=== PATIENT | female | born 1990 | race Caucasian/White ===

== ENCOUNTER 2018-09-14 06:31 | Inpatient (IN) | payer OTHER ==
[~2018-09-14] VITALS: Ht 160 cm; Wt 80.7 kg
[2018-09-14] VITALS (9 sets, daily range): BP systolic 101–140; BP diastolic 63–83
--- NOTE | 2018-09-14 06:25 | NUR ---
PT PRESENTS TO OB BY W/C FROM ED REGISTRATION WITH C/O PAINFUL CONTRACTIONS. STATES AWOKE AT 0200 WITH BACK PAIN. STATES STARTED FEELING CONTRACTIONS ABOUT EVERY 3-5 MIN. PT THEN CALLED OB AROUND 0500 AND WAS TOLD SHE COULD TAKE A WARM BATH AND TAKE TYLENOL HER PAIN WAS TOLERABLE AT THAT TIME AND CALL BACK IN 1 HOUR, OR SHE COULD JUST PRESENT TO OB TO BE EVALUATED. PT HAVING SEVERE PAIN ON ARRIVAL TO LABOR ROOM. PT ASSISTED TO BED AT THIS TIME.
--- NOTE | 2018-09-14 06:35 | NUR ---
SVE DONE AND PT 9CM/100% WITH BULGING BAG, VERTEX, 0 TO +[address] AGUILERA NOTIFIED.
--- NOTE | 2018-09-14 06:40 | NUR ---
IV STARTED AND LABS DRAWN AT THIS TIME. PT BREATHING WELL THROUGH CONTRACTIONS.
[2018-09-14] MEDS ORDERED: OXYTOCIN/NORMAL SALINE 500 ML IV ONE ×2 (06:46→08:16)
--- NOTE | 2018-09-14 06:50 | NUR ---
PT BREATHING WELL DURING CONTRACTIONS. FHT OBTAINED WITH MONITOR PLACED. FHT 130 WITH GOOD VARIABILITY.
--- NOTE | 2018-09-14 06:55 | NUR ---
FHT LOSS ON MONITOR. UPON ADJUSTING MONITOR, NOTED FHT TO BE DECELING FROM 110 DOWN TO 60 BPM OVER 4 MIN.
--- NOTE | 2018-09-14 07:00 | NUR ---
FHT ARE NOW IN 60'S. NOTED BULGING BAG OUT OF VAGINAL OPENING. PT WITH INVOLUNTARY PUSHING. CERVIX COMPLETE. CALL TO DR AGUILERA REGARDING FHT DOWN. ORDERED TO START PUSHING.
--- NOTE | 2018-09-14 07:04 | NUR ---
RUPTURE OF MEMBRANES WITH SVE NOTED THICK PEA SOUP MECONIUM. HEAD REMAINS AT 0 TO +1 STATION. PT ENCOURAGED TO PUSH WITH CONTRACTIONS FHT HAVE NOW BEEN IN THE 60'S-70'S FOR 6 MIN. O2 AT 10L PER NON-REBREATHER.
--- NOTE | 2018-09-14 07:05 | NUR ---
DR ZEE ON UNIT CALLED TO ROOM FOR IMPENDING DELIVERY WHILE WAITING ON DR AGUILERA TO ARRIVE. PT PUSHING EFFECTIVELY.
--- NOTE | 2018-09-14 07:10 | NUR ---
DR AGUILERA HAS ARRIVED. PT CONT TO PUSH AT THIS TIME. FHT 80'S TO 90'S.
--- NOTE | 2018-09-14 07:15 | NUR ---
PT CONT TO PUSH WELL. FHT 100'S. +2 STATION AT THIS TIME.
[2018-09-14] MEDS ORDERED: MINERAL OIL CONCENTRATE 99.9% 15 ML UDC ONE (07:21)
--- NOTE | 2018-09-14 07:30 | NUR ---
PT HAS PUSHED WELL. CONT TO LEAK LARGE AMTS OF THICK MECONIUM FLUID. HEAD AT +4 STATION. NEXT SHIFT AT BEDSIDE TO RESUME CARES.
[2018-09-14] MEDS ORDERED: LIDOCAINE/EPI 2% 1:200,00 (XYLOCAINE) 10 ML VIAL ONE (07:38)
[2018-09-14] MEDS ORDERED: METHYLERGONOVINE 0.2 MG/ML (METHERGINE) AMP ONE (07:57)
--- NOTE | 2018-09-14 08:15 | NUR ---
0815 PP recovery initiated after precipitous labor and delivery @ 0734. Methergine 0.2 mg IM after delivery for heavy vaginal bleeding at delivery. FF @ umb with light rubra flow. Baby skin to skin. 2nd bag of pitocin initiated due to heavy vaginal bleeding immediately after delivery. 0830 FF @ umb with light rubra flow. Infant nursing. 0845 FF @ umb with light-moderate flow. 0900 FF @ umb with light to moderate flow. Mom and baby doing fine. Family @ bedside. 0915 FF @ umb with moderate flow. 0930 FF @ umb with moderate flow. 0945 FF @ umb with moderate flow. 1000 FF @ umb with moderate flow. Eating breakfast. 1020 Up to BR - voided, jhonny-care done. Tucks and jhonny bottle used. Dermoplast at bedside - pt verbalizes understanding. 1030 Transferred to room 309 via w/c. Explained care, call light, and room service. 1315 Mom up and about in room. FF @ umb. Voided as needed. Good bonding with /family.
[2018-09-14] MEDS ORDERED: OXYTOCIN/NORMAL SALINE 500 ML IV SCH (09:01)
[2018-09-14] MEDS ORDERED: HYDROcodone/APAP 5 MG/325 MG (LORTAB) TAB PO PRN (09:15)
[2018-09-14] MEDS ORDERED: TETANUS,DIPTH,PERTUSS P/F (BOOSTRIX) 0.5 ML VIAL IM ONE (09:15)
[2018-09-14] MEDS ORDERED: MEASLES,MUMPS,RUBELLA 1 EA INJ SQ ONE (09:15)
[2018-09-14] MEDS ORDERED: LACTATED RINGERS 1,000 ML IV SCH (09:21)
[2018-09-14] MEDS ORDERED: MINERAL OIL CONCENTRATE 99.9% 15 ML UDC TOP PRN (09:30)
[2018-09-14] MEDS: WITCH HAZEL(TUCKS) 40 EA JAR TOP PRN ×2 (10:00→10:30)
[2018-09-14] MEDS: BENZOCAINE/MENTHOL (DERMOPLAST) 56 ML CAN TP PRN ×2 (10:15→10:30)
[2018-09-14] MEDS: IBUPROFEN 600 MG (MOTRIN) TAB PO SCH ×3 (10:20→21:46)
[2018-09-14 11:23] LABS: BASOPHILS % (AUTO) 0 % (0-10); EOSINOPHILS # (AUTO) 0.1 10^3/uL (0.0-0.3); EOSINOPHILS % (AUTO) 0 % (0-10); HEMATOCRIT 39 % (35-52); HEMOGLOBIN 13.6 G/DL (11.5-16.0); LYMPHOCYTES % (AUTO) 10 % (12-44); MEAN CORPUSCULAR HEMOGLOBIN 31 PG (25-34); MEAN CORPUSCULAR HGB CONC 35 G/DL (32-36); MEAN CORPUSCULAR VOLUME 90 FL (80-99); MEAN PLATELET VOLUME 12.2 FL (7.4-10.4); MONOCYTES # (AUTO) 1.3 X 10^3 (0.0-1.0); MONOCYTES % (AUTO) 6 % (0-12); NEUTROPHILS # (AUTO) 17.3 X 10^3 (1.8-7.8); NEUTROPHILS % (AUTO) 83 % (42-75); PLATELET COUNT 208 10^3/uL (130-400); RED CELL DISTRIBUTION WIDTH 13.6 % (10.0-14.5); WHITE BLOOD COUNT 20.8 10^3/uL (4.3-11.0)
[2018-09-14] MEDS: PRENATAL VITAMIN 1 EA TAB PO SCH (12:19)
[2018-09-14] MEDS ORDERED: METHYLERGONOVINE 0.2 MG/ML (METHERGINE) AMP IM NR (12:30)
[2018-09-14 12:33] LABS: NEUTROPHILS % (MANUAL) 74 %
[2018-09-14 12:34] LABS: BAND NEUTROPHILS 5 %; BASOPHILS % (MANUAL) 0 %; EOSINOPHILS % (MANUAL) 0 %; LYMPHOCYTES % (MANUAL) 11 %; MONOCYTES % (MANUAL) 10 %; RBC MORPH NORMAL
--- NOTE | 2018-09-14 12:36 | History & Physical-OB ---
OB - Chief Complaint & HPI Date/Time Date of Admission: Date of Admission: Sep 14, 2018 at 07:30 Date seen by a Provider: Sep 14, 2018 Time Seen by a Provider: 07:15 Chief Complaint/History OB-Reason for Admission/Chief: Onset of Labor Hx : 1 Hx Para: 0 Gestational Age in Weeks: 39 Gestational Age in Days: 0 Admission Nurse Assessment Rev: Yes Allergies and Home Medications Allergies Coded Allergies: No Known Drug Allergies (Unverified , 09/14/18) Patient Home Medication List Home Medication List Reviewed: Yes OB - History Hx of Present Care: Yes Ultrasounds: Normal mid trimester US Obstetrical Complications: None Medical Complications: None Patient Past Medical History Infertility Immunizations Hepatitis B: No OB - Admission Exam Physical Exam HEENT: NCAT Heart: Rhythm Normal Lungs: Clear Abdomen: Gravid Extremities: Normal Reflexes: Normal Cervical Dilatation: 10cm Effacement: 100% Station: +1 Membranes: Ruptured Amniotic Fluid: Thick Meconium Heart Rate: 130's Accelerations: Accelerations Present Decelerations: Variable Decelerations Short Term Variability: Present Filler Feeder Variability: Average (6-25) Contractions on Admission: < 5 Minutes Apart Labs Laboratory Tests Test 09/14/18 06:50 Range/Units White Blood Count 20.8 H 4.3-11.0 10^3/uL Red Blood Count 4.38 4.35-5.85 10^6/uL Hemoglobin 13.6 11.5-16.0 G/DL Hematocrit 39 35-52 % Mean Corpuscular Volume 90 80-99 FL Mean Corpuscular Hemoglobin 31 25-34 PG Mean Corpuscular Hemoglobin Concent 35 32-36 G/DL Red Cell Distribution Width 13.6 10.0-14.5 % Platelet Count 208 130-400 10^3/uL Mean Platelet Volume 12.2 H 7.4-10.4 FL Neutrophils (%) (Auto) 83 H 42-75 % Lymphocytes (%) (Auto) 10 L 12-44 % Monocytes (%) (Auto) 6 0-12 % Eosinophils (%) (Auto) 0 0-10 % Basophils (%) (Auto) 0 0-10 % Neutrophils # (Auto) 17.3 H 1.8-7.8 X 10^3 Lymphocytes # (Auto) 2.0 1.0-4.0 X 10^3 Monocytes # (Auto) 1.3 H 0.0-1.0 X 10^3 Eosinophils # (Auto) 0.1 0.0-0.3 10^3/uL Basophils # (Auto) 0.0 0.0-0.1 10^3/uL OB - Assessment/Plan/Diagnosis Assessment Assessment: active labor Admission Dx normal labor Admission Status: Inpatient Order (span 2 midnights) Reason for Inpatient Admission: Term labor Plan Plan: Expectant Management Copy Copies To 1: LYUDMILA AGUILERA MD, KATRINA M MD Sep 14, 2018 12:36
--- NOTE | 2018-09-14 12:42 | OB Labor & Delivery Record ---
Vag Delivery Note Vag Delivery Note Date of Delivery: 09/14/18 Preoperative Diagnosis: Singh Dinero is a (28 /Para 1 / 0,Gestational Age (wks)39with [] Postoperative Diagnosis: Same Surgeon: LYUDMILA AGUILERA Finance Vice President: [none] Anesthesia: [none] Delivery Type: [] Findings: [] Viable [male] , apgars [8/8], weight [8 pounds 10 ounces] Lacerations: 2nd degree perineal laceration repaired with 3-0 vicryl. Intact placenta with 3 vessel cord. No nuchal cord, body cord or shoulder dystocia Estimated Blood Loss: [500] ml Complications: None Condition: Stable Description of Procedure: The patient is a 28 year old female who presented [in labor]. She was admitted and informed consent was obtained. Her labor course was remarkable for [meconium ] She progressed to complete dilatation and began to push. She was then set up for delivery. The infant's head was delivered atraumatically in the [OA] position. The shoulders and remainder of the infant' s body were then delivered without difficulty. Upon delivery, the infant was vigorous and the mouth and nares were bulb suctioned. The cord was doubly clamped and cut and the infant after placed on maternal abdomen after 30 seconds. An intact placenta with 3-vessel cord delivered via [place] and there was found to be moderate bleeding.~ Vigorous fundal massage was performed and the fundus was found to be firm after methergine IM given. IV oxytocin was given. Examination of the vagina and perineum revealed a [2nd degree] laceration repaired in the usual fashion with 3-0 vicryl suture. Following the repair, sponge, instrument and needle counts were correct. Mom and baby were both in stable condition in the labor suite. Vitals - Labs Labs Laboratory Tests 09/14/18 06:50: White Blood Count 20.8H, Red Blood Count 4.38, Hemoglobin 13.6, Hematocrit 39, Mean Corpuscular Volume 90, Mean Corpuscular Hemoglobin 31, Mean Corpuscular Hemoglobin Concent 35, Red Cell Distribution Width 13.6, Platelet Count 208, Mean Platelet Volume 12.2H, Neutrophils (%) (Auto) 83H, Lymphocytes (%) (Auto) 10L, Monocytes (%) (Auto) 6, Eosinophils (%) (Auto) 0, Basophils (%) (Auto) 0, Neutrophils # (Auto) 17.3H, Lymphocytes # (Auto) 2.0, Monocytes # (Auto) 1.3H, Eosinophils # (Auto) 0.1, Basophils # (Auto) 0.0, Neutrophils % (Manual) 74, Lymphocytes % (Manual) 11, Monocytes % (Manual) 10, Eosinophils % (Manual) 0, Basophils % (Manual) 0, Band Neutrophils 5, Blood Morphology Comment NORMAL LYUDMILA AGUILERA MD Sep 14, 2018 12:42
[2018-09-14] MEDS ORDERED: CATHETER FLUSH 10 ML SYR IV SCH ×2 (14:00)
--- NOTE | 2018-09-14 16:15 | NUR ---
PT IN BED. FAMILY AT THE BEDSIDE. VS OBTAINED. ROUTINE MOTRIN GIVEN PO; SEE EMAR FOR FURTHER. PT PREPPING TO BREASTFEED . NO NEEDS VOICED.
--- NOTE | 2018-09-14 19:00 | NUR ---
PT SITTING IN BED, EATING. FAMILY AND S/O AT THE BEDSIDE. NO NEEDS VOICED.
--- NOTE | 2018-09-14 19:55 | NUR ---
PM assessment completed. VSS. Vaginal bleeding is appropriate and fundus remains firm. No questions or concerns voiced at this time. will continue to monitor. call light within reach.
[2018-09-14] MEDS: DOCUSATE SODIUM 100 MG (COLACE) CAP PO SCH (21:47)
[2018-09-15 00:55] VITALS: BP 101/63
[2018-09-15 04:34] VITALS: BP 92/54
[2018-09-15] MEDS: IBUPROFEN 600 MG (MOTRIN) TAB PO SCH ×4 (04:36→21:56)
[2018-09-15 05:56] LABS: BASOPHILS % (AUTO) 0 % (0-10); EOSINOPHILS % (AUTO) 0 % (0-10); HEMATOCRIT 27 % (35-52); HEMOGLOBIN 9.1 G/DL (11.5-16.0); LYMPHOCYTES # (AUTO) 1.8 X 10^3 (1.0-4.0); LYMPHOCYTES % (AUTO) 12 % (12-44); MEAN CORPUSCULAR HEMOGLOBIN 31 PG (25-34); MEAN CORPUSCULAR HGB CONC 34 G/DL (32-36); MEAN CORPUSCULAR VOLUME 91 FL (80-99); MONOCYTES # (AUTO) 1.3 X 10^3 (0.0-1.0); MONOCYTES % (AUTO) 9 % (0-12); NEUTROPHILS # (AUTO) 11.5 X 10^3 (1.8-7.8); NEUTROPHILS % (AUTO) 79 % (42-75); PLATELET COUNT 167 10^3/uL (130-400); RED CELL DISTRIBUTION WIDTH 13.1 % (10.0-14.5); WHITE BLOOD COUNT 14.7 10^3/uL (4.3-11.0)
[2018-09-15 08:00] VITALS: BP 114/70
--- NOTE | 2018-09-15 08:00 | NUR ---
A.M. ASSESSMENT COMPLETED. VSS. CARING FOR IN ROOM. GOOD INTERACTION NOTED.
[2018-09-15] MEDS: BENZOCAINE/MENTHOL (DERMOPLAST) 56 ML CAN TP PRN (09:52)
[2018-09-15] MEDS: WITCH HAZEL(TUCKS) 40 EA JAR TOP PRN (09:52)
[2018-09-15] MEDS: PRENATAL VITAMIN 1 EA TAB PO SCH (09:52)
[2018-09-15] MEDS: DOCUSATE SODIUM 100 MG (COLACE) CAP PO SCH ×2 (09:53→20:15)
--- NOTE | 2018-09-15 11:00 | NUR ---
NO CHANGE IN STATUS. TO ROOM PRN.
--- NOTE | 2018-09-15 13:30 | NUR ---
NAPPING. FAMILY AT BEDSIDE. S.O. NAPPING WELL.
[2018-09-15 14:00] VITALS: BP 110/67
--- NOTE | 2018-09-15 16:15 | NUR ---
INFANT. DOING BETTER. VISITORS HAVE BEEN HERE THIS AFTERNOON. GOOD INTERACTION NOTED.
--- NOTE | 2018-09-15 16:19 | Progress Note (SOAP) ---
Subjective Subjective/Events-last exam Doing well, denies concerns. Bleeding steady but no heavy bleeding. Denies dizziness, shortness of breath. is going okay. Review of Systems Date Seen by Provider: Sep 15, 2018 Time Seen by Provider: 08:50 Objective Exam Last Set of Vital Signs Vital Signs Date Time Temp Pulse Resp B/P (MAP) Pulse Ox O2 Delivery O2 Flow Rate FiO2 09/15/18 04:34 97.2 63 16 92/54 (67) 98 Room Air Capillary Refill : I&O Intake and Output 09/15/18 00:00 Intake Total 1800 ml Balance 1800 ml Intake IV Total 1800 ml Daily Weight Change No General: Alert, No Acute Distress Lungs: Clear to Auscultation, Normal Air Movement Heart: Regular Rate, No Murmurs Abdomen: Other (fundus firm below umbilicus) Extremities: No Edema Psych/Mental Status: Mental Status NL Results/Procedures Lab Laboratory Tests 09/15/18 05:40: White Blood Count 14.7H, Red Blood Count 2.94L, Hemoglobin 9.1#L, Hematocrit 27L , Mean Corpuscular Volume 91, Mean Corpuscular Hemoglobin 31, Mean Corpuscular Hemoglobin Concent 34, Red Cell Distribution Width 13.1, Platelet Count 167, Mean Platelet Volume 12.0H, Neutrophils (%) (Auto) 79H, Lymphocytes (%) (Auto) 12, Monocytes (%) (Auto) 9, Eosinophils (%) (Auto) 0, Basophils (%) (Auto) 0, Neutrophils # (Auto) 11.5H, Lymphocytes # (Auto) 1.8, Monocytes # (Auto) 1.3H, Eosinophils # (Auto) 0.0, Basophils # (Auto) 0.0 Assessment/Plan Assessment/Plan (1) (spontaneous vaginal delivery) Status: Acute Assessment & Plan: Doing well, continue routine care. (2) anemia Status: Acute Assessment & Plan: Asymptomatic, iron. Clinical Quality Measures DVT/VTE Risk/Contraindication: Risk Factor Score Per Nursin RFS Level Per Nursing on Admit: 1=Low/No VTE PPX DELMY GOEL MD Sep 15, 2018 16:19
--- NOTE | 2018-09-15 18:00 | NUR ---
EATING STORK MEAL. LOTS OF FAMILY AT BEDSIDE. DENIES ANY WANTS OR NEEDS.
[2018-09-15 20:10] VITALS: BP 118/73
--- NOTE | 2018-09-15 20:14 | NUR ---
pt sitting up in bed. assessment completed. family at bedside. pt denies any needs at this time. will continue to monitor.
[2018-09-16 02:00] VITALS: BP 122/76
[2018-09-16] MEDS: IBUPROFEN 600 MG (MOTRIN) TAB PO SCH ×2 (03:45→09:54)
[2018-09-16] MEDS ORDERED: FERROUS SULF 325 MG (IRON) TAB PO SCH (07:00)
[2018-09-16] MEDS: DOCUSATE SODIUM 100 MG (COLACE) CAP PO SCH (09:54)
[2018-09-16] MEDS: PRENATAL VITAMIN 1 EA TAB PO SCH (09:54)
[2018-09-16 09:55] VITALS: BP 115/73
[2018-09-16] MEDS ORDERED: Benzocaine/Menthol TP (10:04)
[2018-09-16] MEDS ORDERED: IBUP-844 PO (10:04)
[2018-09-16] MEDS ORDERED: WTCHGPD TOP (10:04)
[2018-09-16] MEDS ORDERED: PNV1TABL67 PO (10:04)
--- NOTE | 2018-09-16 10:05 | Discharge Instructions ---
Discharge Inst-Women's Serv Depart Medications New, Converted or Re-Newed RX: Other (over the counter) New Medications: [Benzocaine/Menthol] () 56 ML AEROSOL 0 ML TP UD PRN for PAIN- SEE INSTRUCTIONS, #1 ML EXTERNAL USE ONLY Ibuprofen (Ibu) 600 Mg Tablet 600 MG PO Q6H for Cramps, #90 TAB 0 Refills Pnv with Ca,No.72/Iron/FA (Pnv Plus Multivit Tab) 1 Each Tablet 1 EA PO DAILY@0700, #30 TAB Witch Emely/Glycerin (A.e.r Pads) 40 Ea Pad 0 EA TOP UD PRN for PAIN- SEE INSTRUCTIONS, #1 PAD Follow Up/Instructions Goal/Follow Up: Follow up with Dr. Michelle in 6 weeks Activity Activity: Activity as Tolerated Nothing Inside Vagina: No Douching, No [place], No Tampons Diet Discharge Diet: No Restrictions Symptoms to Report to : Bleeding Excessive, Fever Over 101 Degrees F, Vaginal Bleeding Increase, Vaginal Discharge Foul, Questions/Concerns, Shortness of Breath For Any Problems or Questions: Contact Your Physician CAMACHO PEREA DO Sep 16, 2018 10:05
--- NOTE | 2018-09-16 10:09 | Discharge Summary ---
Diagnosis/Chief Complaint Date of Admission Sep 14, 2018 at 07:30 Date of Discharge Sep 16, 2018 Admission Diagnosis Admission Diagnosis at 39 wk EULA Discharge Diagnosis see problem list Problems/Diagnosis: (1) (spontaneous vaginal delivery) Assessment & Plan: 2nd degree laceration. Doing well, continue routine care. Fu with Dr. Aguilera in 6wk. Status: Acute (2) anemia Assessment & Plan: Asymptomatic, iron. Status: Acute Discharge Summary-OBS Procedures None. Discharge Physical Examination Allergies: Coded Allergies: No Known Drug Allergies (Unverified , 09/14/18) Vitals & I&Os Vital Sign - Last 12Hours Date Time Temp Pulse Resp B/P (MAP) Pulse Ox O2 Delivery O2 Flow Rate FiO2 09/16/18 09:55 98.3 76 18 115/73 (87) 98 Room Air General Appearance: Alert, Oriented X3, Cooperative Psych/Mental Status: Mood NL Hospital Course Routine course. Discussion & Recommendations Depart Medications New, Converted or Re-Newed RX: Other (over the counter) New Medications: [Benzocaine/Menthol] () 56 ML AEROSOL 0 ML TP UD PRN for PAIN- SEE INSTRUCTIONS, #1 ML EXTERNAL USE ONLY Ibuprofen (Ibu) 600 Mg Tablet 600 MG PO Q6H for Cramps, #90 TAB 0 Refills Pnv with Ca,No.72/Iron/FA (Pnv Plus Multivit Tab) 1 Each Tablet 1 EA PO DAILY@0700, #30 TAB Witch Emely/Glycerin (A.e.r Pads) 40 Ea Pad 0 EA TOP UD PRN for PAIN- SEE INSTRUCTIONS, #1 PAD Follow Up/Instructions Goal/Follow Up: Follow up with Dr. Aguilera in 6 weeks Activity Activity: Activity as Tolerated Nothing Inside Vagina: No Douching, No [place], No Tampons Diet Discharge Diet: No Restrictions Symptoms to Report to DrDarvin: Bleeding Excessive, Fever Over 101 Degrees F, Vaginal Bleeding Increase, Vaginal Discharge Foul, Questions/Concerns, Shortness of Breath For Any Problems or Questions: Contact Your Physician Discharge Instructions to patient/family Please see electronic discharge instructions given to patient. Discharge Medications Reviewed and agree with Discharge Medication list on patient's Discharge Instruction sheet Clinical Quality Measures DVT/VTE Risk/Contraindication: Risk Factor Score Per Nursin RFS Level Per Nursing on Admit: 1=Low/No VTE PPX Copy Copies To 1: LYUDMILA AGUILERA MD, LINDA K DO Sep 16, 2018 10:09
--- NOTE | 2018-09-16 11:48 | NUR ---
Ibuprofen called in to [facility]
--- NOTE | 2018-09-16 13:10 | NUR ---
discharge instructions explained to pt with copy provided to pt. pt notified of prescriptions called in to [facility]. Pt verbalizes understanding of teaching, signs to verify. Pt requesting extra lanolin and tucks pads, provided. Pt denies further questions or concerns at this time.
--- NOTE | 2018-09-16 15:10 | NUR ---
Pt ambulates off unit accompanied by RN, family, to private vehicle. All personal belongings with pt. No s/s of distress noted.
--- NOTE | 2018-09-21 09:56 | Physician Query Clarification ---
PQ-Further Specificity Admission/Discharge Admission Date: Sep 14, 2018 at 07:30 Discharge Date: Sep 16, 2018 at 15:10 The medical record reflects the following clinical scenario: History/Risk Factors: OB delivery, acute anemia, moderate bleeding post delivery Clinical Findings: Hgb drop 4.5 13.6>9.1, EBL 500 ml Treatment: IM Methergine, Ferrous sulfate 325 mg, vitamin Question: Can you further specify acute anemia per the clinical indicators above? Please document below. 1. acute blood loss anemia 2. anemia, acute asymptomatic 3. Other, with explanation of the clinical findings. 4. Clinically undetermined, no explanation for the clinical findings. PHYSICIAN RESPONSE Can you specify per above: 1 In responding to this query, please exercise your independent professional judgment. The purpose of this communication is to more accurately reflect the complexity of your patients condition. The fact that a question is asked does not imply that any particular answer is desired or expected. Thank you for your timely response to this clarification. Requestors name: [ ] Phone # [ ] THIS PHYSICIAN QUERY FORM IS A PERMANENT PART OF THE MEDICAL RECORD VASQUEZ BARRIOS Sep 21, 2018 09:56 CAMACHO PEREA DO Oct 02, 2018 08:33
== END 2018-09-16 15:10 | disposition home or self-care (01) | DRG 806 ==
LOC: WSo 06:31 → LDRP 06:32 → WSo 07:30 → LDRP 10:30
PROVIDERS: ADMIT Family Medicine; ATTEND Family Medicine
PROC: 10E0XZZ Delivery of Products of Conception, External Approach (ICD-10-PCS; principal; 2018-09-14)
PROC: 0KQM0ZZ Repair Perineum Muscle, Open Approach (ICD-10-PCS; 2018-09-14)
DX: O77.0 Labor and delivery complicated by meconium in amniotic fluid (principal); O76 Abnormality in fetal heart rate and rhythm complicating labor and delivery; O70.1 Second degree perineal laceration during delivery; O72.1 Other immediate postpartum hemorrhage; O90.81 Anemia of the puerperium; D62 Acute posthemorrhagic anemia; Z37.0 Single live birth; Z3A.39 39 weeks gestation of pregnancy
CPT/HCPCS: 36415; 85007; 85025; 85027; 86850; 86900; 86901; 88307; 99212

== ENCOUNTER → 2019-10-01 | Outpatient (CLI) | payer OTHER ==
[~2019-10-01] MED LIST: Benzocaine/Menthol TP; IBUP-844 PO; PNV1TABL67 PO; WTCHGPD TOP
[2019-10-01 15:13] LABS: HEMATOCRIT 42 % (35-52); HEMOGLOBIN 14.8 G/DL (11.5-16.0); MEAN CORPUSCULAR HEMOGLOBIN 30 PG (25-34); MEAN CORPUSCULAR HGB CONC 35 G/DL (32-36); MEAN CORPUSCULAR VOLUME 86 FL (80-99); NEUTROPHILS % (AUTO) 64 % (42-75); PLATELET COUNT 268 10^3/uL (130-400); RED CELL DISTRIBUTION WIDTH 13.6 % (10.0-14.5); WHITE BLOOD COUNT 6.2 10^3/uL (4.3-11.0)
[2019-10-01 15:14] LABS: BASOPHILS % (AUTO) 1 % (0-10); EOSINOPHILS # (AUTO) 0.1 10^3/uL (0.0-0.3); EOSINOPHILS % (AUTO) 1 % (0-10); LYMPHOCYTES # (AUTO) 1.5 X 10^3 (1.0-4.0); LYMPHOCYTES % (AUTO) 25 % (12-44); MONOCYTES # (AUTO) 0.6 X 10^3 (0.0-1.0); MONOCYTES % (AUTO) 9 % (0-12)
== END ==
LOC: LAB FS 13:53
PROVIDERS: ATTEND Family Medicine
DX: Z34.80 Encounter for supervision of other normal pregnancy, unspecified trimester (principal); Z3A.00 Weeks of gestation of pregnancy not specified
CPT/HCPCS: 36415; 80055; 86703; 87088

== ENCOUNTER → 2019-10-31 | Outpatient (CLI) | payer BC | LOC: LAB FS 07:11 | PROVIDERS: ATTEND Family Medicine | DX: Z34.80 Encounter for supervision of other normal pregnancy, unspecified trimester (principal) | CPT/HCPCS: 36415; 82105; 84702; 86336 ==

== ENCOUNTER → 2020-01-11 | Outpatient (CLI) | payer BC ==
[2020-01-11 10:55] LABS: BASOPHILS % (AUTO) 0 % (0-10); EOSINOPHILS % (AUTO) 1 % (0-10); HEMATOCRIT 35 % (35-52); HEMOGLOBIN 12.4 G/DL (11.5-16.0); LYMPHOCYTES % (AUTO) 23 % (12-44); MEAN CORPUSCULAR HEMOGLOBIN 32 PG (25-34); MEAN CORPUSCULAR HGB CONC 35 G/DL (32-36); MEAN CORPUSCULAR VOLUME 90 FL (80-99); MEAN PLATELET VOLUME 11.3 FL (7.4-10.4); MONOCYTES % (AUTO) 6 % (0-12); NEUTROPHILS % (AUTO) 69 % (42-75); PLATELET COUNT 200 10^3/uL (130-400); RED CELL DISTRIBUTION WIDTH 13.1 % (10.0-14.5); WHITE BLOOD COUNT 8.1 10^3/uL (4.3-11.0)
[2020-01-11 10:56] LABS: EOSINOPHILS # (AUTO) 0.1 10^3/uL (0.0-0.3); LYMPHOCYTES # (AUTO) 1.8 X 10^3 (1.0-4.0); MONOCYTES # (AUTO) 0.5 X 10^3 (0.0-1.0); NEUTROPHILS # (AUTO) 5.6 X 10^3 (1.8-7.8)
== END ==
LOC: LAB FS 09:42
PROVIDERS: ATTEND Family Medicine
DX: Z34.90 Encounter for supervision of normal pregnancy, unspecified, unspecified trimester (principal)
CPT/HCPCS: 36415; 82950; 85025; 86780

== ENCOUNTER 2020-03-26 06:07 | Inpatient (IN) | payer BC ==
[2020-03-26] VITALS (40 sets, daily range): BP systolic 94–133; BP diastolic 53–93
[~2020-03-26] VITALS: Ht 160 cm; Wt 86.2 kg
--- NOTE | 2020-03-26 06:15 | NUR ---
PHIL TIDWELL presented to unit via ambulatory from ED, accompanied by s/o, for INDUCTION. PHIL TIDWELL weighed, gowned, voided, and to bed. PHIL TIDWELL oriented to bed controls, call light, TV, heat, and A/C controls.
[2020-03-26] MEDS ORDERED: D5 LR IV SOLUTION 1,000 ML IV ONE (07:25)
[2020-03-26] MEDS: D5 LR IV SOLUTION 1,000 ML IV SCH ×2 (08:00→12:13)
[2020-03-26 08:03] LABS: BASOPHILS % (AUTO) 0 % (0-10); EOSINOPHILS # (AUTO) 0.1 10^3/uL (0.0-0.3); EOSINOPHILS % (AUTO) 1 % (0-10); HEMATOCRIT 37 % (35-52); HEMOGLOBIN 12.8 G/DL (11.5-16.0); LYMPHOCYTES # (AUTO) 1.8 X 10^3 (1.0-4.0); LYMPHOCYTES % (AUTO) 15 % (12-44); MEAN CORPUSCULAR HGB CONC 34 G/DL (32-36); MEAN CORPUSCULAR VOLUME 86 FL (80-99); MEAN PLATELET VOLUME 11.7 FL (7.4-10.4); MONOCYTES # (AUTO) 0.9 X 10^3 (0.0-1.0); MONOCYTES % (AUTO) 8 % (0-12); NEUTROPHILS % (AUTO) 76 % (42-75); PLATELET COUNT 230 10^3/uL (130-400); WHITE BLOOD COUNT 11.8 10^3/uL (4.3-11.0)
[2020-03-26 08:04] LABS: MEAN CORPUSCULAR HEMOGLOBIN 29 PG (25-34)
[2020-03-26] MEDS: OXYTOCIN PRE-MIX DRIP 500 ML IV SCH ×2 (08:04→14:01)
--- NOTE | 2020-03-26 08:18 | NUR ---
Dr Michelle called to inquire - informed her Dr Krause has ruptured membranes and is on pitocin. History of delivering rapidly with first . Will try to allow sufficient time for physician's travel.
[2020-03-26] MEDS ORDERED: LIDOCAINE/EPI 2% 1:200,00 (XYLOCAINE) 10 ML VIAL ONE (09:37)
[2020-03-26] MEDS ORDERED: FLU QUADRIvalent (3YOA+) 60 mcg/0.5 ml 2020-21 (AFLURIA) IM ONE (10:00)
[2020-03-26] MEDS ORDERED: LACTATED RINGERS 1,000 ML IV ONE ×3 (11:15→12:05)
--- NOTE | 2020-03-26 11:15 | History & Physical-OB ---
OB - Chief Complaint & HPI Date/Time Date of Admission: Date of Admission: Mar 26, 2020 at 06:07 Date seen by a Provider: Mar 26, 2020 Time Seen by a Provider: 11:00 Chief Complaint/History OB-Reason for Admission/Chief: Induction of Labor Hx : 2 Hx Para: 1 Expected Date of Delivery: Apr 03, 2020 Gestational Age in Weeks: 39 Gestational Age in Days: 0 Admission Nurse Assessment Rev: Yes Allergies and Home Medications Allergies Coded Allergies: No Known Drug Allergies (Unverified , 09/14/18) Home Medications Pnv with Ca,No.72/Iron/FA 1 Each Tablet, 1 EA PO DAILY@0700 Prescribed by: CAMACHO PEREA on 09/16/18 1004 Patient Home Medication List Home Medication List Reviewed: Yes OB - History Hx of Present Ultrasounds: Normal mid trimester US Obstetrical Complications: None Medical Complications: None Patient Past Medical History Infertility Social History/Family History Recent Infectious Disease Expo: No Alcohol Use: Denies Use Recreational Drug Use: No Immunizations Hepatitis B: No Date of Influenza Vaccine: May 18, 2018 OB - Admission Exam Physical Exam Vitals: Vital Signs 03/26/20 03/26/20 03/26/20 03/26/20 08:00 08:20 09:45 10:00 Temp 37.4 Pulse 68 Resp 16 B/P (MAP) 123/77 (92) Pulse Ox 97 O2 Delivery Room Air HEENT: NCAT Heart: Rhythm Normal Lungs: Clear Abdomen: Gravid Extremities: Edema Reflexes: Normal Cervical Dilatation: 6cm Effacement: 100% Station: -1 Membranes: Ruptured Amniotic Fluid: Clear Heart Rate: 140's Accelerations: Accelerations Present Decelerations: No Decelerations Short Term Variability: Present Intermediate Variability: Average (6-25) Labs Laboratory Tests Test 03/26/20 07:50 Range/Units White Blood Count 11.8 H 4.3-11.0 10^3/uL Red Blood Count 4.34 L 4.35-5.85 10^6/uL Hemoglobin 12.8 11.5-16.0 G/DL Hematocrit 37 35-52 % Mean Corpuscular Volume 86 80-99 FL Mean Corpuscular Hemoglobin 29 25-34 PG Mean Corpuscular Hemoglobin Concent 34 32-36 G/DL Red Cell Distribution Width 13.3 10.0-14.5 % Platelet Count 230 130-400 10^3/uL Mean Platelet Volume 11.7 H 7.4-10.4 FL Neutrophils (%) (Auto) 76 H 42-75 % Lymphocytes (%) (Auto) 15 12-44 % Monocytes (%) (Auto) 8 0-12 % Eosinophils (%) (Auto) 1 0-10 % Basophils (%) (Auto) 0 0-10 % Neutrophils # (Auto) 9.0 H 1.8-7.8 X 10^3 Lymphocytes # (Auto) 1.8 1.0-4.0 X 10^3 Monocytes # (Auto) 0.9 0.0-1.0 X 10^3 Eosinophils # (Auto) 0.1 0.0-0.3 10^3/uL Basophils # (Auto) 0.0 0.0-0.1 10^3/uL OB - Assessment/Plan/Diagnosis Assessment Assessment: induction of labor Admission Dx Induction of labor. Admission Status: Inpatient Order (span 2 midnights) Reason for Inpatient Admission: Induction of labor at 39 0/7 wga. Plan Plan: Expectant Management Induction Method: per Pitocin Protocol Other Plan AROM at 0800; pitocin; GBS negative. LYUDMILA AGUILERA MD Mar 26, 2020 11:15
[2020-03-26] MEDS ORDERED: fentaNYL 2 mcg/ml BUPIVA 0.125 100 ML ONE (11:18)
[2020-03-26] MEDS ORDERED: BUPIVACAINE 0.25% 30 ML (SENSORCAINE) VIAL ONE (11:36)
[2020-03-26] MEDS ORDERED: fentaNYL INJECTION 100 MCG/2 ML AMP ONE (11:36)
[2020-03-26] MEDS ORDERED: LIDOCAINE PF 2% 5 ML (XYLOCAINE) VIAL ONE (11:36)
[2020-03-26] MEDS ORDERED: fentaNYL INJECTION 100 MCG/2 ML AMP INJ ONE (12:15)
[2020-03-26] MEDS ORDERED: ONDANSETRON 4 MG/2 ML (SDV) Z0FRAN IV PRN (12:15)
[2020-03-26] MEDS ORDERED: NALOXONE 0.4 MG/ML 1 ML (NARCAN) VIAL IV PRN (12:15)
[2020-03-26] MEDS ORDERED: EPIDURAL (fentaNYL 2 MCG/ML BUPIVA 0.125%)100 ML BAG EPI PRN (12:15)
[2020-03-26] MEDS ORDERED: OXYTOCIN PRE-MIX DRIP 500 ML IV SCH (13:42)
--- NOTE | 2020-03-26 13:42 | OB Labor & Delivery Record ---
Vag Delivery Note Vag Delivery Note Date of Delivery: 03/26/20 Preoperative Diagnosis: Singh Dinero is a (29 /Para 2 / 1,Gestational Age (wks)39with [0 days] Postoperative Diagnosis: Same Surgeon: LYUDMILA AGUILERA Food Sampler: [Shruti Arana NP student] Anesthesia: [epidural] Delivery Type: [] Findings: Viable [male] infant, apgars [9/9], weight [7 pounds 14 ounces] Lacerations: 2nd degree perineal Intact placenta with 3 vessel cord. Estimated Blood Loss: [250] ml Complications: None Condition: Stable Description of Procedure: The patient is a 29 year old female who presented [for induction of labor]. She was admitted and informed consent was obtained. Her labor course was remarkable for [nothing] She progressed to complete dilatation and began to push. She was then set up for delivery. The 's head was delivered atraumatically in the [OA] position. The shoulders and remainder of the infant's body were then delivered without difficulty. Upon delivery, the head was held below the level of the perineum and the mouth and nares were bulb suctioned. The cord was doubly clamped and cut after 60 seconds on maternal abdomen by father of the baby. An intact placenta with 3-vessel cord delivered via [place] and there was found to be minimal bleeding.~ Vigorous fundal massage was performed and the fundus was found to be firm. IV oxytocin was given. Examination of the vagina and perineum revealed a [2nd degree perineal] laceration repaired in the usual fashion with 3-0 vicryl suture. Following the repair, sponge, instrument and needle counts were correct. Mom and baby were both in stable condition in the labor suite. Vitals - Labs Vital Signs - I&O Vital Signs Date Time Temp Pulse Resp B/P (MAP) Pulse Ox O2 Delivery O2 Flow Rate FiO2 03/26/20 10:00 68 123/77 (92) 03/26/20 09:45 37.4 72 129/79 (96) 03/26/20 09:30 62 120/80 (93) 03/26/20 09:15 71 126/83 (97) 03/26/20 08:45 77 122/53 (76) 03/26/20 08:20 75 16 130/79 (96) 03/26/20 08:00 37.2 88 16 97 Room Air 03/26/20 07:20 37.2 76 16 126/93 (104) 97 Labs Laboratory Tests 03/26/20 07:50: White Blood Count 11.8H, Red Blood Count 4.34L, Hemoglobin 12.8, Hematocrit 37, Mean Corpuscular Volume 86, Mean Corpuscular Hemoglobin 29, Mean Corpuscular Hemoglobin Concent 34, Red Cell Distribution Width 13.3, Platelet Count 230, Mean Platelet Volume 11.7H, Neutrophils (%) (Auto) 76H, Lymphocytes (%) (Auto) 15, Monocytes (%) (Auto) 8, Eosinophils (%) (Auto) 1, Basophils (%) (Auto) 0, Neutrophils # (Auto) 9.0H, Lymphocytes # (Auto) 1.8, Monocytes # (Auto) 0.9, Eosinophils # (Auto) 0.1, Basophils # (Auto) 0.0 LYUDMILA AGUILERA MD Mar 26, 2020 13:42
[2020-03-26] MEDS ORDERED: TETANUS,DIPTH,PERTUSS P/F (BOOSTRIX) 0.5 ML VIAL IM ONE (13:45)
[2020-03-26] MEDS ORDERED: WITCH HAZEL(TUCKS) 40 EA JAR TOP PRN (13:45)
[2020-03-26] MEDS ORDERED: MEASLES,MUMPS,RUBELLA 1 EA INJ SQ ONE (13:45)
[2020-03-26] MEDS ORDERED: BENZOCAINE/MENTHOL (DERMOPLAST) 60 ML CAN TP PRN (13:45)
[2020-03-26] MEDS ORDERED: CATHETER FLUSH 10 ML SYR IV SCH (14:00)
[2020-03-26] MEDS: ACETAMINOPHEN 500 MG TAB (TYLENOL) PO SCH ×2 (15:07→22:59)
--- NOTE | 2020-03-26 18:00 | NUR ---
Report to Mac Preciado RN
[2020-03-26] MEDS: IBUPROFEN 600 MG (MOTRIN) TAB PO SCH (18:02)
--- NOTE | 2020-03-26 18:20 | NUR ---
stork meal served. in mother's arms. no sx's of distress noted.
--- NOTE | 2020-03-26 19:19 | NUR ---
report given to AMY Jon.
[2020-03-26] MEDS: DOCUSATE SODIUM 100 MG (COLACE) CAP PO SCH (20:22)
[2020-03-26] MEDS: CATHETER FLUSH 10 ML SYR IV SCH (20:22)
[2020-03-27] VITALS: BP 117/74
[2020-03-27] MEDS: IBUPROFEN 600 MG (MOTRIN) TAB PO SCH ×3 (00:46→12:29)
[2020-03-27] MEDS: D5 LR IV SOLUTION 1,000 ML IV SCH (03:23)
[2020-03-27 04:00] VITALS: BP 122/76
[2020-03-27] MEDS: ACETAMINOPHEN 500 MG TAB (TYLENOL) PO SCH ×2 (06:29→14:00)
[2020-03-27] MEDS: CATHETER FLUSH 10 ML SYR IV SCH (06:48)
[2020-03-27 06:56] LABS: BASOPHILS % (AUTO) 0 % (0-10); EOSINOPHILS # (AUTO) 0.1 10^3/uL (0.0-0.3); EOSINOPHILS % (AUTO) 1 % (0-10); HEMATOCRIT 30 % (35-52); HEMOGLOBIN 10.1 G/DL (11.5-16.0); LYMPHOCYTES # (AUTO) 2.2 X 10^3 (1.0-4.0); LYMPHOCYTES % (AUTO) 19 % (12-44); MEAN CORPUSCULAR HEMOGLOBIN 30 PG (25-34); MEAN CORPUSCULAR HGB CONC 34 G/DL (32-36); MEAN CORPUSCULAR VOLUME 88 FL (80-99); MEAN PLATELET VOLUME 11.4 FL (7.4-10.4); MONOCYTES # (AUTO) 0.8 X 10^3 (0.0-1.0); MONOCYTES % (AUTO) 7 % (0-12); NEUTROPHILS # (AUTO) 8.3 X 10^3 (1.8-7.8); NEUTROPHILS % (AUTO) 73 % (42-75); PLATELET COUNT 218 10^3/uL (130-400); WHITE BLOOD COUNT 11.4 10^3/uL (4.3-11.0)
--- NOTE | 2020-03-27 07:10 | NUR ---
Dr Michelle here to see pt.
--- NOTE | 2020-03-27 07:30 | Anesthesia-Regional Post-Op ---
Regional Patient Condition Mental Status: Alert, Oriented x3 Circulation: Same as Pre-Op Headache: Absent Sensation: Full Recovery Motor Block: Absent Post Op Complications Complications None Follow Up Care/Instructions Patient Instructions None needed. Anesthesia/Patient Condition Patient is doing well, no complaints, stable vital signs, no apparent adverse anesthesia problems. No complications reported per nursing. TATE HEWITT CRNA Mar 27, 2020 07:30
[2020-03-27 08:20] VITALS: BP 116/85
[2020-03-27] MEDS: DOCUSATE SODIUM 100 MG (COLACE) CAP PO SCH (09:09)
[2020-03-27 12:20] VITALS: BP 116/80
[2020-03-27] MEDS ORDERED: IBUP-844 PO (15:37)
--- NOTE | 2020-03-27 15:38 | Discharge Summary ---
Discharge Inst-Women's Serv Depart Medications New, Converted or Re-Newed RX: Transmitted to Pharmacy Follow Up/Instructions Goal/Follow Up: Dr Aguilera in 6 weeks. Activity Activity: Activity as Tolerated Driving Instructions: You May Drive NO SMOKING: NO SMOKING Nothing Inside Vagina: No Douching, No [place], No Tampons Diet Discharge Diet: No Restrictions Symptoms to Report to : Fever Over 101 Degrees F, Vaginal Bleeding Increase LYUDMILA AGUILERA MD Mar 27, 2020 15:38
--- NOTE | 2020-03-27 15:40 | Discharge Summary ---
Diagnosis/Chief Complaint Date of Admission Mar 26, 2020 at 06:07 Date of Discharge Mar 27, 2020 Admission Diagnosis Admission Diagnosis Term induction of labor at 39 0/7 wga Discharge Diagnosis Term vaginal delivery. Problems/Diagnosis: (1) care following vaginal delivery Discharge Summary-OBS Procedures None. Discharge Physical Examination Allergies: Coded Allergies: No Known Drug Allergies (Unverified , 09/14/18) Vitals & I&Os Intake and Output 03/27/20 00:00 Intake Total 2720 ml Balance 2720 ml Vital Sign - Last 12Hours Date Time Temp Pulse Resp B/P (MAP) Pulse Ox O2 Delivery O2 Flow Rate FiO2 03/27/20 04:00 35.4 56 16 122/76 (91) 99 Room Air General Appearance: Alert, Oriented X3 HEENT: Atraumatic Respiratory: Clear to Auscultation Cardiovascular: Regular Rate Abdominal: Other (fundus firm blow umbilicus) Extremities: No Edema Skin: No Rashes Neuro: Normal Gait Psych/Mental Status: Mental Status NL Hospital Course Was the Problem List Reviewed?: Yes Unremarkable post- course. Labs Laboratory Tests 03/27/20 06:44: White Blood Count 11.4H, Red Blood Count 3.42L, Hemoglobin 10.1#L, Hematocrit 30L, Mean Corpuscular Volume 88, Mean Corpuscular Hemoglobin 30, Mean Corpuscular Hemoglobin Concent 34, Red Cell Distribution Width 12.9, Platelet Count 218, Mean Platelet Volume 11.4H, Neutrophils (%) (Auto) 73, Lymphocytes (%) (Auto) 19, Monocytes (%) (Auto) 7, Eosinophils (%) (Auto) 1, Basophils (%) (Auto) 0, Neutrophils # (Auto) 8.3H, Lymphocytes # (Auto) 2.2, Monocytes # (Auto) 0.8, Eosinophils # (Auto) 0.1, Basophils # (Auto) 0.0 Discharge Instructions to patient/family Please see electronic discharge instructions given to patient. Discharge Medications Reviewed and agree with Discharge Medication list on patient's Discharge Instruction sheet Clinical Quality Measures DVT/VTE Risk/Contraindication: Risk Factor Score Per Nursin RFS Level Per Nursing on Admit: 1=Low/No VTE PPX LYUDMILA AGUILERA MD Mar 27, 2020 15:40
--- NOTE | 2020-03-27 16:00 | NUR ---
PHIL TIDWELL demonstrates understanding of discharge instructions and accurately returns instructions upon questioning. Copy of Post-Discharge Instructions and Medication Discharge Instructions given to patient. PHIL TIDWELL is able to manage continuing needs after discharge. Patients belongings returned to patient. Skin dry and intact; no breakdown noted. Patient discharged from [facility]- on 03/27/20 at 1600 . PHIL TIDWELL boardering in room 313 until angele is discharged.no concerns voiced at this time.
== END 2020-03-27 16:00 | disposition home or self-care (01) | DRG 807 ==
LOC: LDRP 06:07
PROVIDERS: ADMIT Family Medicine; ATTEND Family Medicine
PROC: 10E0XZZ Delivery of Products of Conception, External Approach (ICD-10-PCS; principal; 2020-03-26)
PROC: 0KQM0ZZ Repair Perineum Muscle, Open Approach (ICD-10-PCS; 2020-03-26)
PROC: 3E033VJ Introduction of Other Hormone into Peripheral Vein, Percutaneous Approach (ICD-10-PCS; 2020-03-26)
DX: O70.1 Second degree perineal laceration during delivery (principal); Z37.0 Single live birth; Z3A.39 39 weeks gestation of pregnancy
CPT/HCPCS: 36415; 85025; 86850; 86900; 86901; 90686